=== PATIENT | male | born 1960 | race Caucasian/White ===

== ENCOUNTER 2017-05-25 15:47 | Emergency (ER) | payer OTHER ==
[~2017-05-25] VITALS: Ht 170.2 cm; Wt 94.1 kg
[2017-05-25] MEDS ORDERED: MOTRIN600 MG PO (17:36)
[2017-05-25] MEDS ORDERED: PREDNISONE20 MG PO (17:36)
[2017-05-25] MEDS ORDERED: FLEXERIL10 MG PO (17:36)
[2017-05-25] MEDS ORDERED: LIDODERM 5% P1 PATCH TD (17:36)
[2017-05-25 18:04] VITALS: BP 109/67
== END 2017-05-25 18:19 | disposition home or self-care (01) ==
LOC: EME 15:47
DX: M54.5 Low back pain (principal); W01.0XXA Fall on same level from slipping, tripping and stumbling without subsequent striking against object, initial encounter; G89.29 Other chronic pain; Z98.1 Arthrodesis status; Z96.643 Presence of artificial hip joint, bilateral; F17.200 Nicotine dependence, unspecified, uncomplicated
CPT/HCPCS: 72100; 99281; 99284; J1885; J7512

== ENCOUNTER → 2017-08-09 | Outpatient (CLI) | payer MEDICARE ==
[~2017-08-09] MED LIST: FLEXERIL10 MG PO; LIDODERM 5% P1 PATCH TD; MOTRIN600 MG PO; PREDNISONE20 MG PO
== END | disposition home or self-care (01) ==
LOC: CDC 14:25
DX: Z01.810 Encounter for preprocedural cardiovascular examination (principal); N50.9 Disorder of male genital organs, unspecified
CPT/HCPCS: 93000

== ENCOUNTER 2017-10-25 09:11 | Day surgery (SDC) | payer OTHER ==
[~2017-10-25] VITALS: Ht 170.2 cm; Wt 92.5 kg
[~2017-10-25 09:11] MED LIST changes: +LO-DOSE ASPIRIN81 M1 PO; +ZOCOR20 MG PO
[2017-10-25 09:34] VITALS: BP 117/77
[2017-10-25] MEDS ORDERED: NORCO 5/3251 TABLET PO (12:38)
[2017-10-25 13:05] VITALS: BP 107/91
== END 2017-10-25 13:37 | disposition home or self-care (01) ==
LOC: SDC 09:11
PROC: 0JH60XZ Insertion of Tunneled Vascular Access Device into Chest Subcutaneous Tissue and Fascia, Open Approach (ICD-10-PCS; principal; 2017-10-25)
DX: Z45.2 Encounter for adjustment and management of vascular access device (principal); C62.90 Malignant neoplasm of unspecified testis, unspecified whether descended or undescended; I87.8 Other specified disorders of veins; I25.10 Atherosclerotic heart disease of native coronary artery without angina pectoris; E78.5 Hyperlipidemia, unspecified; Z79.82 Long term (current) use of aspirin; F17.210 Nicotine dependence, cigarettes, uncomplicated; Z80.0 Family history of malignant neoplasm of digestive organs; Z80.8 Family history of malignant neoplasm of other organs or systems
CPT/HCPCS: 71045; C1751; J0690; J3010

== ENCOUNTER → 2017-10-27 | Outpatient (CLI) | payer OTHER ==
[~2017-10-27] MED LIST changes: +NORCO 5/3251 TABLET PO
== END | disposition home or self-care (01) ==
LOC: RES 08:00
DX: R94.2 Abnormal results of pulmonary function studies (principal)
CPT/HCPCS: 94070; 94726; 94729